=== PATIENT | male | born 1955 | race Caucasian/White ===

== ENCOUNTER 2018-01-14 10:18 | Day surgery (SDC) | payer OTHER ==
[2018-01-14] MEDS ORDERED: FENTAnyl 50 MCG/ML VIAL (12:58)
[2018-01-14] MEDS ORDERED: MIDAZOLAM 1 MG/ML 2 ML INJ ×3 (12:59)
== END 2018-01-14 19:31 | disposition home or self-care (01) ==
LOC: GIL 10:18
DX: K92.1 Melena (principal); D12.5 Benign neoplasm of sigmoid colon; K44.9 Diaphragmatic hernia without obstruction or gangrene; K22.70 Barrett's esophagus without dysplasia; K29.60 Other gastritis without bleeding; K64.8 Other hemorrhoids
CPT/HCPCS: 43239; 87081; 88305; 88312